=== PATIENT | male | born 1955 | race Hispanic/Latino ===

== ENCOUNTER 2023-08-25 06:04 | Day surgery (SDC) | payer OTHER ==
[~2023-08-25] VITALS: Ht 172.7 cm; Wt 72.6 kg
[2023-08-25] VITALS (10 sets, daily range): BP systolic 104–168; BP diastolic 55–76; PULSE 59–70; RESP 14–18
[~2023-08-25 06:04] MED LIST: ALBU6.7H14 IH; PANT40TA54 PO
[2023-08-25] MEDS: 0.9%NACL 1000ML 1,000 ML IV ONE (06:40)
[2023-08-25] MEDS ORDERED: PROPOFOL 10 MG/ML 20ML VIAL IV ONE (07:10)
== END 2023-08-25 08:35 | disposition home or self-care (01) ==
LOC: ENDO 06:04 → DAH 06:04 → ENDO 08:35
PROVIDERS: ATTEND Internal Medicine Gastroenterology
DX: Z12.11 Encounter for screening for malignant neoplasm of colon (principal); K63.5 Polyp of colon; J44.9 Chronic obstructive pulmonary disease, unspecified; K21.9 Gastro-esophageal reflux disease without esophagitis; Z82.49 Family history of ischemic heart disease and other diseases of the circulatory system; Z87.891 Personal history of nicotine dependence; Z86.010 Personal history of colon polyps
CPT/HCPCS: 45380; J7030 ×2; J2704; A4620; A4215; A4223; A4657; A7002; A4222; A4221; A4663; A4606; J3490